=== PATIENT | male | born 1955 | race Caucasian/White ===

== ENCOUNTER 2019-06-20 05:46 | Inpatient (IN) | payer BC ==
[~2019-06-20] VITALS: Ht 162.6 cm; Wt 98.4 kg
[2019-06-20] MEDS ORDERED: ONDANSETRON HCL 4MG/2ML INJ IV ONE (09:45)
[2019-06-20] MEDS ORDERED: ASPIRIN 81MG TABLET PO ONE (09:45)
[2019-06-20] MEDS ORDERED: MORPHINE SULFATE 4 MG/ML CPJ (NOT FOR IM USE) IV ONE (09:45)
[2019-06-20] MEDS ORDERED: SODIUM CHLORIDE 0.9% 1,000 ML IV ONE (09:45)
[2019-06-20 10:20] LABS: HEMATOCRIT. 32.7 % (42.0-52.0); HEMOGLOBIN. 11.3 g/dL (14.0-18.0); MEAN CORPUSCULAR HEMOGLOBIN 29.8 pg (28.0-32.0); MEAN CORPUSCULAR VOLUME 86.4 fL (80.0-94.0); MEAN PLATELET VOLUME 8.7 fl (7.4-10.4); PLATELET 235 x1000/uL (130-400); RED BLOOD CELL COUNT 3.79 mill/uL (4.7-6.1); RED CELL DISTRIBUTION WIDTH 14.1 % (11.6-14.6)
[2019-06-20 10:21] LABS: CHLORIDE 89 mEq/L (98-107)
[2019-06-20 10:57] LABS: PLATELET ESTIMATE NORMAL
[2019-06-20] MEDS ORDERED: INSULIN REGULAR (HUMULIN R) 300UNITS/3ML SUBCUT ONE (11:15)
[2019-06-20 12:00] VITALS: BP 136/74
[2019-06-20 13:04] LABS: CLARITY URINE CLOUDY (CLEAR); COLOR URINE YELLOW (YELLOW); KETONES URINE NEGATIVE (NEGATIVE); LEUKOCYTE ESTERASE URINE 1+ (NEGATIVE); NITRITE URINE NEGATIVE (NEGATIVE); OCCULT BLOOD URINE 1+ (NEGATIVE); PROTEIN URINE 2+ (NEGATIVE); SPECIFIC GRAVITY URINE 1.031 (1.005-1.030)
[2019-06-20] MEDS ORDERED: IOHEXOL-350 100 ML BOTTLE ONE (13:50)
[2019-06-20 13:52] LABS: *AMPHETAMINES SCREEN URINE NEGATIVE (NEGATIVE)
[2019-06-20 13:54] LABS: *BARBITURATES SCREEN URINE NEGATIVE (NEGATIVE); *BENZODIAZEPINES SCREEN URINE NEGATIVE (NEGATIVE); *COCAINE SCREEN URINE NEGATIVE (NEGATIVE); CANNABINOID URINE SCREEN NEGATIVE (NEGATIVE); METHADONE URINE SCREEN NEGATIVE (NEGATIVE); PHENCYCLIDINE URINE SCREEN NEGATIVE (NEGATIVE)
[2019-06-20 14:10] LABS: OPIATES URINE SCREEN PRESUMTIVE POSITIVE (NEGATIVE)
[2019-06-20] MEDS ORDERED: DEXTROSE 50% WATER 50ML SYRINGE IV PRN (14:45)
[2019-06-20] MEDS ORDERED: CLONIDINE 0.1MG TABLET PO PRN (14:45)
[2019-06-20] MEDS ORDERED: ZOLPIDEM TARTRATE 5MG TABLET PO PRN (14:45)
[2019-06-20] MEDS ORDERED: MAGNESIUM/ALUMINUM HYDROXIDE/SIMETHICONE 30ML UDC PO PRN (14:45)
[2019-06-20] MEDS ORDERED: GUAIFENESIN 200MG/10ML SUGAR FREE UDC PO PRN (14:45)
[2019-06-20] MEDS ORDERED: ONDANSETRON HCL 4MG/2ML INJ IV PRN (14:45)
[2019-06-20] MEDS ORDERED: IPRATROPIUM/ALBUTEROL 0.5-3(2.5)MG/3ML NEB NEB PRN (14:45)
[2019-06-20] MEDS ORDERED: ENOXAPARIN 40MG/0.4ML SYR SUBCUT SCH (15:45)
[2019-06-20] MEDS ORDERED: LEVOFLOXACIN 500MG PREMIX 100 ML IV NR (15:45)
[2019-06-20] MEDS: SODIUM CHLORIDE 0.9% 1,000 ML IV SCH ×2 (16:03→23:39)
[2019-06-20 16:04] LABS: T4 FREE 1.7 ng/dL (0.76-1.46)
[2019-06-20] MEDS: KETOROLAC 15MG/ML VIAL IV PRN ×2 (16:04→23:58)
[2019-06-20 16:52] LABS: FOLIC ACID (FOLATE) SERUM 6.9 ng/mL (>5.38)
[2019-06-20] MEDS: BLOOD SUGAR DIAGNOSTIC STRIP TEST SCH ×2 (17:47→21:03)
[2019-06-20] MEDS: INSULIN LISPRO 100 UNITS/ML SUBCUT SCH ×2 (18:16→18:20)
[2019-06-20] MEDS: DILTIAZEM HCL 60MG TABLET PO SCH ×2 (18:16→23:10)
[2019-06-20 20:40] VITALS: BP 107/70
[2019-06-20] MEDS ORDERED: INSULIN GLARGINE UD 100 UNITS/ML SYR SUBCUT SCH (22:00)
[2019-06-20] MEDS ORDERED: CEFTRIAXONE 1 G PREMIX 50 ML IV SCH (23:00)
[2019-06-20] MEDS: NITROGLYCERIN 0.4MG TABLET SL SL PRN (23:08)
[2019-06-20] MEDS: ASCORBIC ACID 500 MG TABLET PO SCH (23:11)
[2019-06-20] MEDS: INSULIN GLARGINE UD 100 UNITS/ML SYR SUBCUT SCH (23:14)
[2019-06-20] MEDS: ENOXAPARIN 30MG/0.3ML SYR SUBCUT SCH (23:16)
[2019-06-20 23:47] LABS: CREATINE KINASE 58 IU/L (39-308)
[2019-06-20 23:49] LABS: CREATINE KINASE MB FRACTION < 1.0 ng/mL (0.5-3.6)
[2019-06-21] VITALS (81 sets, daily range): BP systolic 69–144; BP diastolic 38–92
[2019-06-21] MEDS ORDERED: NOREPINEPHRINE 32 MG in DEXT 5% WATER 468 ML IV PRN (02:30)
[2019-06-21 03:22] LABS: CREATINE KINASE 62 IU/L (39-308); CREATINE KINASE MB FRACTION < 1.0 ng/mL (0.5-3.6)
[2019-06-21] MEDS: DILTIAZEM HCL 60MG TABLET PO SCH ×3 (06:00→18:00)
[2019-06-21 06:09] LABS: CREATINE KINASE 65 IU/L (39-308)
[2019-06-21 06:10] LABS: CREATINE KINASE MB FRACTION < 1.0 ng/mL (0.5-3.6)
[2019-06-21] MEDS: BLOOD SUGAR DIAGNOSTIC STRIP TEST SCH ×4 (07:50→21:39)
[2019-06-21 08:35] LABS: HEMATOCRIT 29.4 % (42.0-52.0); HEMOGLOBIN 10.1 g/dL (14.0-18.0); MEAN CORPUSCULAR HEMOGLOBIN 29.6 pg (28.0-32.0); MEAN CORPUSCULAR VOLUME 86.2 fL (80.0-94.0); PLATELET 183 x1000/uL (130-400); RED BLOOD CELL COUNT 3.41 mill/uL (4.7-6.1); RED CELL DISTRIBUTION WIDTH 14.6 % (11.6-14.6)
[2019-06-21 08:38] LABS: CHLORIDE 98 mEq/L (98-107)
[2019-06-21] MEDS ORDERED: CEFTRIAXONE 1 G PREMIX 50 ML IV SCH (09:00)
[2019-06-21] MEDS: ZINC SULFATE 220 MG ( 50 ) CAPSULE PO SCH (09:22)
[2019-06-21] MEDS: DOCUSATE SODIUM 100MG CAPSULE PO PRN (09:22)
[2019-06-21] MEDS: FAMOTIDINE 20MG TABLET PO SCH ×2 (09:22→21:40)
[2019-06-21] MEDS: ASCORBIC ACID 500 MG TABLET PO SCH ×2 (09:22→21:40)
[2019-06-21] MEDS: ASPIRIN 325MG EC TABLET PO SCH (09:22)
[2019-06-21] MEDS: ENOXAPARIN 30MG/0.3ML SYR SUBCUT SCH ×2 (09:24→21:39)
[2019-06-21] MEDS: KETOROLAC 15MG/ML VIAL IV PRN ×2 (09:26→15:53)
[2019-06-21] MEDS: INSULIN LISPRO 100 UNITS/ML SUBCUT SCH ×7 (10:42→21:38)
[2019-06-21] MEDS ORDERED: VANCOMYCIN 750 MG PREMIX 150 ML IV SCH (12:00)
[2019-06-21] MEDS: MEROPENEM 1,000 MG in SODIUM CHLORIDE 0.9% 100 ML IV SCH ×2 (13:09→18:34)
[2019-06-21] MEDS ORDERED: LEVOFLOXACIN 500MG PREMIX 100 ML IV SCH ×2 (14:45→18:00)
[2019-06-21] MEDS: VANCOMYCIN 1250MG in DEXTROSE 5% WATER 250ML IV SCH (16:40)
[2019-06-21] MEDS: SODIUM CHLORIDE 0.9% 1,000 ML IV SCH ×2 (16:46→19:45)
[2019-06-21] MEDS: INSULIN GLARGINE UD 100 UNITS/ML SYR SUBCUT SCH (21:38)
[2019-06-22] VITALS (35 sets, daily range): BP systolic 92–163; BP diastolic 44–87
[2019-06-22] MEDS: DILTIAZEM HCL 60MG TABLET PO SCH ×2 (00:11→05:48)
[2019-06-22] MEDS: KETOROLAC 15MG/ML VIAL IV PRN ×2 (02:35→09:01)
[2019-06-22] MEDS: MEROPENEM 1,000 MG in SODIUM CHLORIDE 0.9% 100 ML IV SCH ×3 (02:35→18:52)
[2019-06-22] MEDS: SODIUM CHLORIDE 0.9% 1,000 ML IV SCH ×2 (05:48→18:53)
[2019-06-22 06:11] LABS: HEMOGLOBIN. 10.4 g/dL (14.0-18.0); MEAN CORPUSCULAR HEMOGLOBIN 29.8 pg (28.0-32.0); MEAN CORPUSCULAR VOLUME 85.9 fL (80.0-94.0); PLATELET 165 x1000/uL (130-400); RED CELL DISTRIBUTION WIDTH 14.7 % (11.6-14.6)
[2019-06-22 06:33] LABS: CHLORIDE 102 mEq/L (98-107)
[2019-06-22] MEDS: BLOOD SUGAR DIAGNOSTIC STRIP TEST SCH ×4 (07:50→21:24)
[2019-06-22 08:38] LABS: PLATELET ESTIMATE NORMAL
[2019-06-22] MEDS: ASCORBIC ACID 500 MG TABLET PO SCH ×2 (09:01→21:23)
[2019-06-22] MEDS: FAMOTIDINE 20MG TABLET PO SCH ×2 (09:01→21:23)
[2019-06-22] MEDS: ASPIRIN 325MG EC TABLET PO SCH (09:01)
[2019-06-22] MEDS: ZINC SULFATE 220 MG ( 50 ) CAPSULE PO SCH (09:01)
[2019-06-22] MEDS: ENOXAPARIN 30MG/0.3ML SYR SUBCUT SCH ×2 (09:02→21:23)
[2019-06-22] MEDS: INSULIN LISPRO 100 UNITS/ML SUBCUT SCH ×7 (09:04→21:24)
[2019-06-22] MEDS ORDERED: POTASSIUM CHLORIDE 20MEQ/PACKET PO NR (10:15)
[2019-06-22] MEDS: VANCOMYCIN 1250MG in DEXTROSE 5% WATER 250ML IV SCH (10:42)
[2019-06-22] MEDS: LISINOPRIL 5MG TABLET PO SCH (12:22)
[2019-06-22] MEDS: MORPHINE SULFATE 4 MG/ML CPJ (NOT FOR IM USE) IV PRN (14:09)
[2019-06-22] MEDS: METOPROLOL TARTRATE 50MG TABLET PO SCH (21:23)
[2019-06-22] MEDS: INSULIN GLARGINE UD 100 UNITS/ML SYR SUBCUT SCH (21:26)
[2019-06-23] VITALS (40 sets, daily range): BP systolic 104–146; BP diastolic 40–85
[2019-06-23] MEDS: MEROPENEM 1,000 MG in SODIUM CHLORIDE 0.9% 100 ML IV SCH ×2 (02:13→10:19)
[2019-06-23] MEDS: VANCOMYCIN 1250MG in DEXTROSE 5% WATER 250ML IV SCH ×2 (02:59→21:06)
[2019-06-23] MEDS: SODIUM CHLORIDE 0.9% 1,000 ML IV SCH ×3 (02:59→21:46)
[2019-06-23] MEDS: MORPHINE SULFATE 4 MG/ML CPJ (NOT FOR IM USE) IV PRN ×2 (04:38→20:16)
[2019-06-23 05:41] LABS: CHLORIDE 102 mEq/L (98-107)
[2019-06-23 05:46] LABS: HEMATOCRIT. 30.5 % (42.0-52.0); HEMOGLOBIN. 10.6 g/dL (14.0-18.0); MEAN CORPUSCULAR HEMOGLOBIN 29.9 pg (28.0-32.0); MEAN CORPUSCULAR VOLUME 85.8 fL (80.0-94.0); MEAN PLATELET VOLUME 8.8 fl (7.4-10.4); PLATELET 193 x1000/uL (130-400); RED BLOOD CELL COUNT 3.55 mill/uL (4.7-6.1); RED CELL DISTRIBUTION WIDTH 14.8 % (11.6-14.6)
[2019-06-23 07:08] LABS: PLATELET ESTIMATE NORMAL
[2019-06-23] MEDS: INSULIN LISPRO 100 UNITS/ML SUBCUT SCH ×7 (08:20→21:08)
[2019-06-23] MEDS: BLOOD SUGAR DIAGNOSTIC STRIP TEST SCH ×4 (09:00→20:39)
[2019-06-23] MEDS: METOPROLOL TARTRATE 50MG TABLET PO SCH ×3 (09:00→21:44)
[2019-06-23] MEDS: ENOXAPARIN 30MG/0.3ML SYR SUBCUT SCH ×2 (10:06→21:06)
[2019-06-23] MEDS: ZINC SULFATE 220 MG ( 50 ) CAPSULE PO SCH (10:07)
[2019-06-23] MEDS: FAMOTIDINE 20MG TABLET PO SCH ×2 (10:07→21:06)
[2019-06-23] MEDS: ASCORBIC ACID 500 MG TABLET PO SCH ×2 (10:09→21:06)
[2019-06-23] MEDS: ASPIRIN 325MG EC TABLET PO SCH (10:12)
[2019-06-23] MEDS: LISINOPRIL 5MG TABLET PO SCH (18:42)
[2019-06-23] MEDS: INSULIN GLARGINE UD 100 UNITS/ML SYR SUBCUT SCH (21:09)
[2019-06-24] VITALS (30 sets, daily range): BP systolic 92–152; BP diastolic 55–110
[2019-06-24] MEDS: MORPHINE SULFATE 4 MG/ML CPJ (NOT FOR IM USE) IV PRN (01:23)
[2019-06-24 04:26] LABS: CHLORIDE 106 mEq/L (98-107)
[2019-06-24] MEDS: KETOROLAC 15MG/ML VIAL IV PRN ×2 (05:44→15:05)
[2019-06-24] MEDS: INSULIN LISPRO 100 UNITS/ML SUBCUT SCH ×7 (07:41→21:00)
[2019-06-24] MEDS: BLOOD SUGAR DIAGNOSTIC STRIP TEST SCH ×4 (07:41→21:31)
[2019-06-24] MEDS ORDERED: POTASSIUM CHLORIDE 20MEQ/PACKET PO NR (08:45)
[2019-06-24] MEDS: LISINOPRIL 5MG TABLET PO SCH (09:10)
[2019-06-24] MEDS: METOPROLOL TARTRATE 50MG TABLET PO SCH ×2 (09:10→21:31)
[2019-06-24] MEDS: ASPIRIN 325MG EC TABLET PO SCH (09:10)
[2019-06-24] MEDS: FAMOTIDINE 20MG TABLET PO SCH ×2 (09:10→21:30)
[2019-06-24] MEDS: ASCORBIC ACID 500 MG TABLET PO SCH ×2 (09:10→21:30)
[2019-06-24] MEDS: ENOXAPARIN 30MG/0.3ML SYR SUBCUT SCH ×2 (09:11→21:31)
[2019-06-24] MEDS: ZINC SULFATE 220 MG ( 50 ) CAPSULE PO SCH (09:11)
[2019-06-24] MEDS ORDERED: KCL 20MEQ/100ML PREMIX 100 ML IV NR (09:30)
[2019-06-24] MEDS: SODIUM CHLORIDE 0.9% 1,000 ML IV SCH ×2 (09:50→20:18)
[2019-06-24] MEDS: CEFAZOLIN 2,000 MG in DEXT 5% WATER 100 ML IV SCH ×2 (14:59→21:32)
[2019-06-24] MEDS: INSULIN GLARGINE UD 100 UNITS/ML SYR SUBCUT SCH (21:34)
[2019-06-25] VITALS (26 sets, daily range): BP systolic 92–170; BP diastolic 43–95
[2019-06-25] MEDS: KETOROLAC 15MG/ML VIAL IV PRN ×2 (00:13→07:56)
[2019-06-25] MEDS: MORPHINE SULFATE 4 MG/ML CPJ (NOT FOR IM USE) IV PRN ×2 (00:31→05:50)
[2019-06-25] MEDS: SODIUM CHLORIDE 0.9% 1,000 ML IV SCH ×2 (05:27→14:18)
[2019-06-25] MEDS: CEFAZOLIN 2,000 MG in DEXT 5% WATER 100 ML IV SCH ×3 (05:27→21:08)
[2019-06-25 07:34] LABS: CHLORIDE 104 mEq/L (98-107)
[2019-06-25 07:49] LABS: PHOSPHORUS 1.9 mg/dL (2.5-4.9)
[2019-06-25] MEDS: BLOOD SUGAR DIAGNOSTIC STRIP TEST SCH ×4 (07:55→21:05)
[2019-06-25] MEDS: DOCUSATE SODIUM 100MG CAPSULE PO PRN (08:40)
[2019-06-25] MEDS: ASPIRIN 325MG EC TABLET PO SCH (08:40)
[2019-06-25] MEDS: ZINC SULFATE 220 MG ( 50 ) CAPSULE PO SCH (08:41)
[2019-06-25] MEDS: METOPROLOL TARTRATE 50MG TABLET PO SCH ×2 (08:41→20:48)
[2019-06-25] MEDS: LISINOPRIL 5MG TABLET PO SCH (08:41)
[2019-06-25] MEDS: FAMOTIDINE 20MG TABLET PO SCH ×2 (08:41→20:47)
[2019-06-25] MEDS: ASCORBIC ACID 500 MG TABLET PO SCH ×2 (08:41→20:48)
[2019-06-25] MEDS: ENOXAPARIN 30MG/0.3ML SYR SUBCUT SCH ×2 (08:42→20:47)
[2019-06-25] MEDS: INSULIN LISPRO 100 UNITS/ML SUBCUT SCH ×7 (08:43→21:00)
[2019-06-25 09:33] LABS: HEMATOCRIT. 30.4 % (42.0-52.0); HEMOGLOBIN. 10.3 g/dL (14.0-18.0); MEAN CORPUSCULAR HEMOGLOBIN 28.9 pg (28.0-32.0); MEAN CORPUSCULAR VOLUME 85.3 fL (80.0-94.0); MEAN PLATELET VOLUME 8.2 fl (7.4-10.4); PLATELET 297 x1000/uL (130-400); RED BLOOD CELL COUNT 3.56 mill/uL (4.7-6.1); RED CELL DISTRIBUTION WIDTH 14.6 % (11.6-14.6)
[2019-06-25 13:49] LABS: PLATELET ESTIMATE NORMAL
[2019-06-25] MEDS: TRAMADOL 50MG TABLET PO PRN ×2 (14:17→20:52)
[2019-06-25] MEDS: INSULIN GLARGINE UD 100 UNITS/ML SYR SUBCUT SCH (21:29)
[2019-06-26] VITALS (25 sets, daily range): BP systolic 104–165; BP diastolic 52–84
[2019-06-26] MEDS: SODIUM CHLORIDE 0.9% 1,000 ML IV SCH ×3 (01:28→20:35)
[2019-06-26] MEDS: TRAMADOL 50MG TABLET PO PRN ×3 (03:45→20:50)
[2019-06-26 05:01] LABS: CHLORIDE 103 mEq/L (98-107)
[2019-06-26 05:02] LABS: HEMATOCRIT. 31.5 % (42.0-52.0); HEMOGLOBIN. 10.6 g/dL (14.0-18.0); MEAN CORPUSCULAR HEMOGLOBIN 29.3 pg (28.0-32.0); MEAN CORPUSCULAR VOLUME 86.9 fL (80.0-94.0); MEAN PLATELET VOLUME 8.3 fl (7.4-10.4); PLATELET 357 x1000/uL (130-400); RED BLOOD CELL COUNT 3.62 mill/uL (4.7-6.1); RED CELL DISTRIBUTION WIDTH 15.2 % (11.6-14.6)
[2019-06-26] MEDS: CEFAZOLIN 2,000 MG in DEXT 5% WATER 100 ML IV SCH ×3 (05:13→21:00)
[2019-06-26] MEDS: INSULIN LISPRO 100 UNITS/ML SUBCUT SCH ×7 (08:20→20:59)
[2019-06-26] MEDS: BLOOD SUGAR DIAGNOSTIC STRIP TEST SCH ×4 (08:30→20:50)
[2019-06-26] MEDS: ASPIRIN 325MG EC TABLET PO SCH (08:50)
[2019-06-26] MEDS: ZINC SULFATE 220 MG ( 50 ) CAPSULE PO SCH (08:51)
[2019-06-26] MEDS: METOPROLOL TARTRATE 50MG TABLET PO SCH ×2 (08:51→20:51)
[2019-06-26] MEDS: ASCORBIC ACID 500 MG TABLET PO SCH ×2 (08:52→20:49)
[2019-06-26] MEDS: LISINOPRIL 5MG TABLET PO SCH (08:52)
[2019-06-26] MEDS: FAMOTIDINE 20MG TABLET PO SCH ×2 (08:52→20:49)
[2019-06-26] MEDS: ENOXAPARIN 30MG/0.3ML SYR SUBCUT SCH ×2 (08:53→20:50)
[2019-06-26 21:22] LABS: PLATELET ESTIMATE NORMAL
[2019-06-26] MEDS: INSULIN GLARGINE UD 100 UNITS/ML SYR SUBCUT SCH (22:33)
[2019-06-27] VITALS (16 sets, daily range): BP systolic 96–164; BP diastolic 51–79
[2019-06-27] MEDS: CEFAZOLIN 2,000 MG in DEXT 5% WATER 100 ML IV SCH ×2 (05:04→14:51)
[2019-06-27] MEDS: SODIUM CHLORIDE 0.9% 1,000 ML IV SCH ×2 (05:59→17:24)
[2019-06-27] MEDS: TRAMADOL 50MG TABLET PO PRN ×2 (06:07→13:32)
[2019-06-27 06:38] LABS: HEMATOCRIT. 29.8 % (42.0-52.0); MEAN CORPUSCULAR HEMOGLOBIN 28.9 pg (28.0-32.0); MEAN CORPUSCULAR VOLUME 86.4 fL (80.0-94.0); MEAN PLATELET VOLUME 7.8 fl (7.4-10.4); PLATELET 450 x1000/uL (130-400); RED BLOOD CELL COUNT 3.45 mill/uL (4.7-6.1); RED CELL DISTRIBUTION WIDTH 15.2 % (11.6-14.6)
[2019-06-27] MEDS: INSULIN LISPRO 100 UNITS/ML SUBCUT SCH ×7 (07:50→21:00)
[2019-06-27] MEDS: BLOOD SUGAR DIAGNOSTIC STRIP TEST SCH ×4 (07:50→21:19)
[2019-06-27 08:29] LABS: CHLORIDE 105 mEq/L (98-107)
[2019-06-27 08:32] LABS: PLATELET ESTIMATE INCREASED
[2019-06-27] MEDS: ASPIRIN 325MG EC TABLET PO SCH (08:33)
[2019-06-27] MEDS: METOPROLOL TARTRATE 50MG TABLET PO SCH ×2 (08:33→21:14)
[2019-06-27] MEDS: ASCORBIC ACID 500 MG TABLET PO SCH ×2 (08:33→21:14)
[2019-06-27] MEDS: LISINOPRIL 5MG TABLET PO SCH (08:33)
[2019-06-27] MEDS: ZINC SULFATE 220 MG ( 50 ) CAPSULE PO SCH (08:33)
[2019-06-27] MEDS: ENOXAPARIN 30MG/0.3ML SYR SUBCUT SCH ×2 (08:34→21:14)
[2019-06-27] MEDS: FAMOTIDINE 20MG TABLET PO SCH ×2 (08:34→21:14)
[2019-06-27] MEDS: NITROGLYCERIN 0.4MG TABLET SL SL PRN (18:28)
[2019-06-27] MEDS: INSULIN GLARGINE UD 100 UNITS/ML SYR SUBCUT SCH (21:19)
[2019-06-28] VITALS: BP 128/71
[2019-06-28] MEDS: CEFAZOLIN 2,000 MG in DEXT 5% WATER 100 ML IV SCH ×4 (00:06→21:58)
[2019-06-28] MEDS: TRAMADOL 50MG TABLET PO PRN ×3 (00:22→22:00)
[2019-06-28 04:00] VITALS: BP 128/71
[2019-06-28] MEDS: SODIUM CHLORIDE 0.9% 1,000 ML IV SCH ×3 (04:49→21:59)
[2019-06-28] MEDS: BLOOD SUGAR DIAGNOSTIC STRIP TEST SCH ×4 (06:25→21:59)
[2019-06-28] MEDS: INSULIN LISPRO 100 UNITS/ML SUBCUT SCH ×7 (06:27→21:00)
[2019-06-28 06:49] LABS: CHLORIDE 102 mEq/L (98-107); HEMATOCRIT. 27.4 % (42.0-52.0); HEMOGLOBIN. 9.3 g/dL (14.0-18.0); MEAN CORPUSCULAR HEMOGLOBIN 29.5 pg (28.0-32.0); MEAN CORPUSCULAR VOLUME 86.6 fL (80.0-94.0); MEAN PLATELET VOLUME 7.9 fl (7.4-10.4); PLATELET 479 x1000/uL (130-400); RED BLOOD CELL COUNT 3.16 mill/uL (4.7-6.1); RED CELL DISTRIBUTION WIDTH 15.1 % (11.6-14.6)
[2019-06-28 08:00] VITALS: BP 115/61
[2019-06-28] MEDS: ASPIRIN 325MG EC TABLET PO SCH (09:12)
[2019-06-28] MEDS: ASCORBIC ACID 500 MG TABLET PO SCH ×2 (09:12→21:58)
[2019-06-28] MEDS: METOPROLOL TARTRATE 50MG TABLET PO SCH ×2 (09:12→22:00)
[2019-06-28] MEDS: ENOXAPARIN 30MG/0.3ML SYR SUBCUT SCH ×2 (09:12→21:59)
[2019-06-28] MEDS: LISINOPRIL 5MG TABLET PO SCH (09:12)
[2019-06-28] MEDS: ZINC SULFATE 220 MG ( 50 ) CAPSULE PO SCH (09:13)
[2019-06-28] MEDS: FAMOTIDINE 20MG TABLET PO SCH ×2 (09:13→22:00)
[2019-06-28 11:41] VITALS: BP_SYST 115; BP_SYST 130; BP_DIAS 61; BP_DIAS 69
[2019-06-28 12:00] VITALS: BP 124/62
[2019-06-28 14:10] LABS: PLATELET ESTIMATE INCREASED
[2019-06-28 16:00] VITALS: BP 109/55
[2019-06-28] MEDS: INSULIN GLARGINE UD 100 UNITS/ML SYR SUBCUT SCH (21:57)
[2019-06-29] VITALS: BP 118/63
[2019-06-29] MEDS: NITROGLYCERIN 0.4MG TABLET SL SL PRN (00:20)
[2019-06-29 04:00] VITALS: BP 129/70
[2019-06-29] MEDS: TRAMADOL 50MG TABLET PO PRN ×2 (06:29→08:50)
[2019-06-29] MEDS: CEFAZOLIN 2,000 MG in DEXT 5% WATER 100 ML IV SCH (06:29)
[2019-06-29] MEDS: INSULIN LISPRO 100 UNITS/ML SUBCUT SCH ×5 (06:46→12:13)
[2019-06-29] MEDS: BLOOD SUGAR DIAGNOSTIC STRIP TEST SCH ×2 (06:46→11:45)
[2019-06-29 07:04] LABS: HEMATOCRIT. 26.5 % (42.0-52.0); MEAN CORPUSCULAR HEMOGLOBIN 29.2 pg (28.0-32.0); MEAN PLATELET VOLUME 7.7 fl (7.4-10.4); PLATELET 551 x1000/uL (130-400); RED BLOOD CELL COUNT 3.08 mill/uL (4.7-6.1)
[2019-06-29 07:10] LABS: CHLORIDE 102 mEq/L (98-107)
[2019-06-29 08:00] VITALS: BP 130/69
[2019-06-29] MEDS: ASCORBIC ACID 500 MG TABLET PO SCH (08:36)
[2019-06-29] MEDS: ASPIRIN 325MG EC TABLET PO SCH (08:36)
[2019-06-29] MEDS: METOPROLOL TARTRATE 50MG TABLET PO SCH (08:36)
[2019-06-29] MEDS: LISINOPRIL 5MG TABLET PO SCH (08:36)
[2019-06-29] MEDS: ZINC SULFATE 220 MG ( 50 ) CAPSULE PO SCH (08:36)
[2019-06-29] MEDS: FAMOTIDINE 20MG TABLET PO SCH (08:36)
[2019-06-29] MEDS: ENOXAPARIN 30MG/0.3ML SYR SUBCUT SCH (08:37)
[2019-06-29] MEDS: SODIUM CHLORIDE 0.9% 1,000 ML IV SCH (08:38)
[2019-06-29 11:37] LABS: PLATELET ESTIMATE INCREASED
[2019-06-29 12:00] VITALS: BP 160/75
== END 2019-06-29 12:35 | disposition home health service (06) | DRG 871 ==
LOC: ER 05:46 → EDBEDREQ 12:37 → 7WST 16:19 → ENRESERV 20:31 → CVICU 06-21 04:06 → 6WST 06-27 15:25
PROVIDERS: ADMIT Internal Medicine; ATTEND Internal Medicine
PROC: 05HM33Z Insertion of Infusion Device into Right Internal Jugular Vein, Percutaneous Approach (ICD-10-PCS; principal; 2019-06-21)
PROC: B543ZZA Ultrasonography of Right Jugular Veins, Guidance (ICD-10-PCS; 2019-06-21)
DX: A41.01 Sepsis due to Methicillin susceptible Staphylococcus aureus (principal); N17.0 Acute kidney failure with tubular necrosis; E43 Unspecified severe protein-calorie malnutrition; R65.21 Severe sepsis with septic shock; N39.0 Urinary tract infection, site not specified; E87.1 Hypo-osmolality and hyponatremia; L03.113 Cellulitis of right upper limb; E11.65 Type 2 diabetes mellitus with hyperglycemia; E83.51 Hypocalcemia; D64.9 Anemia, unspecified; E66.9 Obesity, unspecified; M48.02 Spinal stenosis, cervical region; I10 Essential (primary) hypertension; E78.5 Hyperlipidemia, unspecified; E78.00 Pure hypercholesterolemia, unspecified; B95.2 Enterococcus as the cause of diseases classified elsewhere; R74.0 Nonspecific elevation of levels of transaminase and lactic acid dehydrogenase [LDH]; J44.9 Chronic obstructive pulmonary disease, unspecified; Z79.4 Long term (current) use of insulin; Z87.891 Personal history of nicotine dependence; Z68.37 Body mass index [BMI] 37.0-37.9, adult
CPT/HCPCS: 36415; 71045; 71275; 72141; 72146; 72148; 73030; 73221; 76937; 80048; 80053; 80061; 80202; 80305; 81003; 82550; 82553; 82607; 82746; 82962; 83036; 83540; 83550; 83605; 83735; 83880; 84100; 84439; 84443; 84484; 85025; 85027; 85379; 85651; 86140; 87077; 87186; 93005; 93306; 93970; 96365; 97162; 97166; 97530; 99285; C1725; J0690; J0696; J1650; J1815; J1885; J1956; J2185; J2270; J2405; J3370; J3480; J7050; J7060; Q9967

== ENCOUNTER 2022-07-16 15:05 | Inpatient (IN) | payer OTHER ==
[~2022-07-16] VITALS: Ht 167.6 cm; Wt 80.4 kg
[2022-07-16] MEDS ORDERED: MORPHINE SULFATE 4 MG/ML CPJ (NOT FOR IM USE) IV STA (15:48)
[2022-07-16] MEDS ORDERED: ONDANSETRON HCL 4MG/2ML INJ IV STA (15:48)
[2022-07-16] MEDS ORDERED: PIPERACILLIN/TAZ 3.375G PREMIX 50 ML IV ONE (16:00)
[2022-07-16] MEDS ORDERED: SODIUM CHLORIDE 0.9% 1,000 ML IV ONE (16:00)
[2022-07-16] MEDS ORDERED: VANCOMYCIN 1G PREMIX 200 ML IV ONE (16:00)
[2022-07-16 17:59] LABS: BASOPHILS % 0.6 % (0.0-2.0); EOSINOPHILS % 1.4 % (0.0-5.0); HEMATOCRIT. 26.2 % (42.0-52.0); HEMOGLOBIN. 8.8 g/dL (14.0-18.0); LYMPHOCYTES % 11.9 % (20.0-50.0); MEAN CORPUSCULAR HEMOGLOBIN 28.6 pg (28.0-32.0); MEAN CORPUSCULAR VOLUME 84.9 fL (80.0-94.0); MEAN PLATELET VOLUME 6.7 fl (7.4-10.4); MONOCYTES % 8.3 % (2.0-8.0); NEUTROPHILS % 77.8 % (40.0-76.0); PLATELET 583 x1000/uL (130-400); RED BLOOD CELL COUNT 3.08 mill/uL (4.7-6.1); RED CELL DISTRIBUTION WIDTH 13.8 % (11.6-14.6)
[2022-07-16 18:04] LABS: INR 1.3; PROTHROMBIN TIME 13.3 sec (9.6-11.0)
[2022-07-16 18:08] LABS: CHLORIDE 103 mEq/L (98-107)
[2022-07-16] MEDS ORDERED: SODIUM POLYSTYRENE SULFONATE 15 G/60 ML BOT PO ONE (18:45)
[2022-07-16] MEDS ORDERED: SODIUM BICARBONATE 8.4% 1 MEQ/ML 50ML SYR IV ONE (18:45)
[2022-07-16] MEDS ORDERED: ALBUTEROL (0.083%) 2.5MG/3ML NEB HHN ONE (18:45)
[2022-07-16] MEDS ORDERED: MORPHINE SULFATE 4 MG/ML CPJ (NOT FOR IM USE) IV NR (20:45)
[2022-07-16] MEDS: ONDANSETRON HCL 4MG/2ML INJ IV NR ×2 (21:06→21:08)
[2022-07-16] MEDS ORDERED: VANCOMYCIN 1G PREMIX 200 ML IV NR (22:00)
[2022-07-16 22:25] VITALS: BP 147/72
[2022-07-16] MEDS ORDERED: METF-416 PO (22:49)
[2022-07-16] MEDS ORDERED: OMEP20CA14 PO (22:49)
[2022-07-16] MEDS ORDERED: ATOR20TA65 PO (22:49)
[2022-07-16] MEDS ORDERED: CLOP-31 PO (22:49)
[2022-07-16] MEDS ORDERED: FERR325T6 PO (22:49)
[2022-07-16] MEDS ORDERED: BENA-8 PO (22:49)
[2022-07-16 23:26] VITALS: BP 147/72
[2022-07-16] MEDS ORDERED: NALOXONE HCL 0.4MG/ML VIAL IV PRN (23:45)
[2022-07-17] MEDS ORDERED: DEXTROSE 50% WATER 50ML SYRINGE IV PRN
[2022-07-17 00:05] VITALS: BP 104/66
[2022-07-17 04:00] VITALS: BP 99/57
[2022-07-17] MEDS: PIPERACILLIN/TAZOBACTAM 3.375 G in DEXTROSE 5% WATER 50 ML IV SCH ×3 (05:33→21:15)
[2022-07-17] MEDS: HYDROCODONE/ACETAMINOPHEN 10/325MG TABLET PO PRN ×2 (05:41→10:17)
[2022-07-17] MEDS: INSULIN LISPRO 100 UNITS/ML SUBCUT SCH ×4 (05:45→21:00)
[2022-07-17] MEDS: BLOOD SUGAR DIAGNOSTIC STRIP TEST SCH ×4 (05:45→21:08)
[2022-07-17 06:26] LABS: BASOPHILS % 0.8 % (0.0-2.0); EOSINOPHILS % 2.7 % (0.0-5.0); HEMOGLOBIN. 7.9 g/dL (14.0-18.0); LYMPHOCYTES % 19.2 % (20.0-50.0); MEAN CORPUSCULAR HEMOGLOBIN 28.9 pg (28.0-32.0); MEAN CORPUSCULAR VOLUME 84.5 fL (80.0-94.0); NEUTROPHILS % 66.3 % (40.0-76.0); PLATELET 483 x1000/uL (130-400); RED BLOOD CELL COUNT 2.72 mill/uL (4.7-6.1); RED CELL DISTRIBUTION WIDTH 13.6 % (11.6-14.6)
[2022-07-17 07:45] LABS: CHLORIDE 108 mEq/L (98-107)
[2022-07-17 07:50] LABS: HDL CHOLESTEROL 25 mg/dL (40-59); LDL CHOLESTEROL 29 mg/dL (5-100)
[2022-07-17 08:00] VITALS: BP 99/59
[2022-07-17] MEDS: FERROUS SULFATE 325MG TABLET PO SCH (08:08)
[2022-07-17] MEDS: METFORMIN HCL 500MG TABLET PO SCH ×2 (08:10→18:10)
[2022-07-17] MEDS ORDERED: VANCOMYCIN 1.25GM PMX (XELLIA) 250 ML IV SCH (09:00)
[2022-07-17] MEDS ORDERED: OMEPRAZOLE 20MG CAPSULE EXTENDED RELEASE PO SCH (09:00)
[2022-07-17] MEDS: CLOPIDOGREL 75MG TABLET PO SCH (11:28)
[2022-07-17 12:00] VITALS: BP 87/48
[2022-07-17] MEDS ORDERED: SODIUM CHLORIDE 0.9% 500 ML IV ONE (12:15)
[2022-07-17 12:30] VITALS: BP 106/62
[2022-07-17] MEDS: KETOROLAC 15MG/ML VIAL IV PRN (13:36)
[2022-07-17 16:00] VITALS: BP 105/55
[2022-07-17] MEDS: MIDODRINE HCL 5MG TABLET PO SCH (18:49)
[2022-07-17] MEDS: ATORVASTATIN CALCIUM 20MG TABLET PO SCH (21:15)
[2022-07-18] VITALS: BP 114/59
[2022-07-18] MEDS ORDERED: VANCOMYCIN 1G PREMIX 200 ML IV SCH
[2022-07-18 04:00] VITALS: BP 99/55
[2022-07-18] MEDS: BLOOD SUGAR DIAGNOSTIC STRIP TEST SCH ×4 (06:27→21:54)
[2022-07-18] MEDS: PIPERACILLIN/TAZOBACTAM 3.375 G in DEXTROSE 5% WATER 50 ML IV SCH ×3 (06:27→21:49)
[2022-07-18 08:00] VITALS: BP 107/63
[2022-07-18] MEDS: METFORMIN HCL 500MG TABLET PO SCH ×2 (08:10→18:10)
[2022-07-18] MEDS: INSULIN LISPRO 100 UNITS/ML SUBCUT SCH ×4 (08:10→21:54)
[2022-07-18] MEDS: OMEPRAZOLE 20MG CAPSULE EXTENDED RELEASE PO SCH (08:13)
[2022-07-18] MEDS: KETOROLAC 15MG/ML VIAL IV PRN ×2 (08:13→20:50)
[2022-07-18] MEDS: FERROUS SULFATE 325MG TABLET PO SCH (08:13)
[2022-07-18] MEDS: CLOPIDOGREL 75MG TABLET PO SCH (08:14)
[2022-07-18] MEDS: MIDODRINE HCL 5MG TABLET PO SCH ×3 (08:14→18:33)
[2022-07-18 09:08] LABS: CHLORIDE 107 mEq/L (98-107)
[2022-07-18 12:00] VITALS: BP 104/61
[2022-07-18] MEDS: IRON SUCROSE COMPLEX 100 MG/5 ML ML IV SCH (13:38)
[2022-07-18 16:00] VITALS: BP 124/64
[2022-07-18] MEDS ORDERED: IOHEXOL-350 100 ML BOTTLE ONE (16:14)
[2022-07-18 20:00] VITALS: BP 104/53
[2022-07-18] MEDS: ATORVASTATIN CALCIUM 20MG TABLET PO SCH (20:50)
[2022-07-19] VITALS: BP 101/57
[2022-07-19] MEDS: VANCOMYCIN 750MG PREMIX 150 ML IV SCH ×2 (00:52→17:25)
[2022-07-19 04:00] VITALS: BP 98/58
[2022-07-19] MEDS: PIPERACILLIN/TAZOBACTAM 3.375 G in DEXTROSE 5% WATER 50 ML IV SCH ×3 (06:03→21:21)
[2022-07-19] MEDS: BLOOD SUGAR DIAGNOSTIC STRIP TEST SCH ×4 (06:23→21:21)
[2022-07-19] MEDS: OMEPRAZOLE 20MG CAPSULE EXTENDED RELEASE PO SCH (07:13)
[2022-07-19 08:00] VITALS: BP 113/64
[2022-07-19] MEDS: INSULIN LISPRO 100 UNITS/ML SUBCUT SCH ×4 (08:10→21:00)
[2022-07-19] MEDS: METFORMIN HCL 500MG TABLET PO SCH ×2 (08:10→17:26)
[2022-07-19] MEDS: CLOPIDOGREL 75MG TABLET PO SCH (09:35)
[2022-07-19] MEDS: KETOROLAC 15MG/ML VIAL IV PRN ×2 (09:35→21:56)
[2022-07-19] MEDS: MIDODRINE HCL 5MG TABLET PO SCH ×3 (09:36→17:25)
[2022-07-19] MEDS: FERROUS SULFATE 325MG TABLET PO SCH (09:36)
[2022-07-19 12:00] VITALS: BP 93/56
[2022-07-19] MEDS: IRON SUCROSE COMPLEX 100 MG/5 ML ML IV SCH (12:37)
[2022-07-19 16:00] VITALS: BP 106/58
[2022-07-19 20:11] VITALS: BP 112/61
[2022-07-19] MEDS: ATORVASTATIN CALCIUM 20MG TABLET PO SCH (21:21)
[2022-07-20] VITALS: BP 116/63
[2022-07-20 04:00] VITALS: BP 102/52
[2022-07-20] MEDS: INSULIN LISPRO 100 UNITS/ML SUBCUT SCH ×4 (06:27→21:00)
[2022-07-20] MEDS: PIPERACILLIN/TAZOBACTAM 3.375 G in DEXTROSE 5% WATER 50 ML IV SCH ×3 (06:27→20:29)
[2022-07-20] MEDS: BLOOD SUGAR DIAGNOSTIC STRIP TEST SCH ×4 (06:27→21:00)
[2022-07-20 07:21] LABS: BASOPHILS % 0.7 % (0.0-2.0); EOSINOPHILS % 3.7 % (0.0-5.0); HEMATOCRIT. 24.4 % (42.0-52.0); HEMOGLOBIN. 8.3 g/dL (14.0-18.0); LYMPHOCYTES % 14.2 % (20.0-50.0); MEAN CORPUSCULAR HEMOGLOBIN 28.5 pg (28.0-32.0); MONOCYTES % 10.5 % (2.0-8.0); NEUTROPHILS % 70.9 % (40.0-76.0); PLATELET 471 x1000/uL (130-400); RED CELL DISTRIBUTION WIDTH 13.7 % (11.6-14.6)
[2022-07-20 07:26] LABS: CHLORIDE 106 mEq/L (98-107)
[2022-07-20 08:00] VITALS: BP 116/50
[2022-07-20] MEDS: OMEPRAZOLE 20MG CAPSULE EXTENDED RELEASE PO SCH (09:37)
[2022-07-20] MEDS: CLOPIDOGREL 75MG TABLET PO SCH (09:40)
[2022-07-20] MEDS: METFORMIN HCL 500MG TABLET PO SCH ×2 (09:40→17:35)
[2022-07-20] MEDS: FERROUS SULFATE 325MG TABLET PO SCH (09:40)
[2022-07-20] MEDS: MIDODRINE HCL 5MG TABLET PO SCH ×3 (09:41→17:19)
[2022-07-20 12:00] VITALS: BP 122/66
[2022-07-20] MEDS: VANCOMYCIN 750MG PREMIX 150 ML IV SCH (12:53)
[2022-07-20] MEDS: IRON SUCROSE COMPLEX 100 MG/5 ML ML IV SCH (12:54)
[2022-07-20 16:00] VITALS: BP 129/70
[2022-07-20 20:00] VITALS: BP 119/66
[2022-07-20] MEDS: ATORVASTATIN CALCIUM 20MG TABLET PO SCH (20:30)
[2022-07-20] MEDS: HYDROCODONE/ACETAMINOPHEN 10/325MG TABLET PO PRN (20:30)
[2022-07-21 01:00] VITALS: BP 100/53
[2022-07-21] MEDS: VANCOMYCIN 750MG PREMIX 150 ML IV SCH (07:35)
[2022-07-21] MEDS: PIPERACILLIN/TAZOBACTAM 3.375 G in DEXTROSE 5% WATER 50 ML IV SCH ×3 (07:35→22:03)
[2022-07-21] MEDS: BLOOD SUGAR DIAGNOSTIC STRIP TEST SCH ×4 (07:53→21:00)
[2022-07-21 08:00] VITALS: BP 121/66
[2022-07-21] MEDS: METFORMIN HCL 500MG TABLET PO SCH ×2 (08:06→17:48)
[2022-07-21] MEDS: INSULIN LISPRO 100 UNITS/ML SUBCUT SCH ×4 (08:07→21:00)
[2022-07-21] MEDS: FERROUS SULFATE 325MG TABLET PO SCH (08:55)
[2022-07-21] MEDS: MIDODRINE HCL 5MG TABLET PO SCH ×3 (08:55→16:18)
[2022-07-21] MEDS: OMEPRAZOLE 20MG CAPSULE EXTENDED RELEASE PO SCH (08:55)
[2022-07-21] MEDS: CLOPIDOGREL 75MG TABLET PO SCH (08:56)
[2022-07-21 12:00] VITALS: BP 107/46
[2022-07-21] MEDS ORDERED: IODIXANOL 320MG/ML 100 ML BOTTLE IV ONE (12:09)
[2022-07-21] MEDS ORDERED: LIDOCAINE HCL 1% 20ML VIAL (Pyxis) INJ ONE (12:09)
[2022-07-21] MEDS ORDERED: HEPARIN 1000 UNITS/ML 10ML ONE (12:22)
[2022-07-21] MEDS ORDERED: MIDAZOLAM HCL 2 MG/2 ML VIAL ONE (12:23)
[2022-07-21] MEDS ORDERED: FENTANYL CITRATE/PF 50MCG/ML 2ML VIAL ONE (12:23)
[2022-07-21 16:00] VITALS: BP 108/61
[2022-07-21] MEDS: HYDROCODONE/ACETAMINOPHEN 10/325MG TABLET PO PRN (16:18)
[2022-07-21 20:00] VITALS: BP 102/62
[2022-07-21] MEDS: ATORVASTATIN CALCIUM 20MG TABLET PO SCH (21:59)
[2022-07-22] VITALS: BP 97/60
[2022-07-22 04:00] VITALS: BP 100/43
[2022-07-22] MEDS: INSULIN LISPRO 100 UNITS/ML SUBCUT SCH ×4 (07:32→21:00)
[2022-07-22] MEDS: BLOOD SUGAR DIAGNOSTIC STRIP TEST SCH ×4 (07:33→21:00)
[2022-07-22] MEDS: METFORMIN HCL 500MG TABLET PO SCH ×2 (07:49→17:46)
[2022-07-22] MEDS: OMEPRAZOLE 20MG CAPSULE EXTENDED RELEASE PO SCH (07:49)
[2022-07-22 08:00] VITALS: BP 99/55
[2022-07-22] MEDS: FERROUS SULFATE 325MG TABLET PO SCH (08:48)
[2022-07-22] MEDS: MIDODRINE HCL 5MG TABLET PO SCH ×3 (08:49→17:46)
[2022-07-22] MEDS ORDERED: CLOPIDOGREL 75MG TABLET PO SCH (09:00)
[2022-07-22 12:00] VITALS: BP 107/61
[2022-07-22 16:00] VITALS: BP 115/67
[2022-07-22 16:03] LABS: BASOPHILS % 0.5 % (0.0-2.0); EOSINOPHILS % 0.9 % (0.0-5.0); HEMATOCRIT. 22.8 % (42.0-52.0); HEMOGLOBIN. 7.7 g/dL (14.0-18.0); LYMPHOCYTES % 12.1 % (20.0-50.0); MEAN CORPUSCULAR HEMOGLOBIN 28.3 pg (28.0-32.0); MEAN CORPUSCULAR VOLUME 84.4 fL (80.0-94.0); MEAN PLATELET VOLUME 6.6 fl (7.4-10.4); MONOCYTES % 14.4 % (2.0-8.0); NEUTROPHILS % 72.1 % (40.0-76.0); PLATELET 391 x1000/uL (130-400); RED BLOOD CELL COUNT 2.71 mill/uL (4.7-6.1); RED CELL DISTRIBUTION WIDTH 13.8 % (11.6-14.6)
[2022-07-22 16:13] LABS: CHLORIDE 104 mEq/L (98-107)
[2022-07-22 16:18] LABS: TOTAL IRON BINDING CAPACITY 221 ug/dL (250-450)
[2022-07-22] MEDS: CYANOCOBALAMIN 1000MCG/ML VIAL SUBCUT SCH (17:46)
[2022-07-22] MEDS: IRON SUCROSE COMPLEX 100 MG/5 ML ML IV SCH (17:47)
[2022-07-22 19:19] LABS: HEMATOCRIT 23.3 % (42.0-52.0); HEMOGLOBIN 7.9 g/dL (14.0-18.0)
[2022-07-22 20:00] VITALS: BP 110/63
[2022-07-22] MEDS: PANTOPRAZOLE SODIUM 40 MG/VIAL IV SCH (21:28)
[2022-07-22] MEDS: ATORVASTATIN CALCIUM 20MG TABLET PO SCH (21:32)
[2022-07-22] MEDS: ACETAMINOPHEN 650MG/20.3ML UDC PO PRN (21:35)
[2022-07-22 23:09] LABS: HEMATOCRIT. 22.1 % (42.0-52.0); HEMOGLOBIN. 7.5 g/dL (14.0-18.0); MEAN CORPUSCULAR HEMOGLOBIN 28.7 pg (28.0-32.0); MEAN CORPUSCULAR VOLUME 84.6 fL (80.0-94.0); MEAN PLATELET VOLUME 6.6 fl (7.4-10.4); PLATELET 379 x1000/uL (130-400); RED BLOOD CELL COUNT 2.61 mill/uL (4.7-6.1); RED CELL DISTRIBUTION WIDTH 14.1 % (11.6-14.6)
[2022-07-22] MEDS: PIPERACILLIN/TAZOBACTAM 3.375 G in DEXTROSE 5% WATER 50 ML IV SCH (23:32)
[2022-07-22] MEDS: DEXT 5%/0.9% NACL 1,000 ML IV SCH (23:35)
[2022-07-22 23:58] LABS: PLATELET ESTIMATE NORMAL
[2022-07-23] VITALS: BP 94/52
[2022-07-23 04:00] VITALS: BP 98/50
[2022-07-23 05:30] LABS: HEMATOCRIT. 22.9 % (42.0-52.0); HEMOGLOBIN. 7.6 g/dL (14.0-18.0); MEAN CORPUSCULAR HEMOGLOBIN 28.1 pg (28.0-32.0); MEAN CORPUSCULAR VOLUME 84.6 fL (80.0-94.0); MEAN PLATELET VOLUME 6.6 fl (7.4-10.4); PLATELET 357 x1000/uL (130-400); RED BLOOD CELL COUNT 2.71 mill/uL (4.7-6.1)
[2022-07-23 05:40] LABS: INR 1.2; PROTHROMBIN TIME 12.4 sec (9.6-11.0)
[2022-07-23 06:05] LABS: CHLORIDE 105 mEq/L (98-107)
[2022-07-23] MEDS: PIPERACILLIN/TAZOBACTAM 3.375 G in DEXTROSE 5% WATER 50 ML IV SCH ×3 (06:09→21:48)
[2022-07-23] MEDS: BLOOD SUGAR DIAGNOSTIC STRIP TEST SCH ×4 (06:10→21:48)
[2022-07-23] MEDS: INSULIN LISPRO 100 UNITS/ML SUBCUT SCH ×4 (06:10→21:00)
[2022-07-23] MEDS: METFORMIN HCL 500MG TABLET PO SCH ×2 (06:13→16:42)
[2022-07-23 06:39] LABS: PLATELET ESTIMATE NORMAL
[2022-07-23 08:00] VITALS: BP 114/67
[2022-07-23] MEDS: FERROUS SULFATE 325MG TABLET PO SCH (08:29)
[2022-07-23] MEDS: MIDODRINE HCL 5MG TABLET PO SCH ×3 (08:29→16:42)
[2022-07-23] MEDS: PANTOPRAZOLE SODIUM 40 MG/VIAL IV SCH ×2 (08:30→21:48)
[2022-07-23] MEDS: CYANOCOBALAMIN 1000MCG/ML VIAL SUBCUT SCH (08:30)
[2022-07-23 12:00] VITALS: BP 115/53
[2022-07-23] MEDS: DEXT 5%/0.9% NACL 1,000 ML IV SCH (13:23)
[2022-07-23 13:47] LABS: HEMATOCRIT 23.9 % (42.0-52.0); HEMOGLOBIN 8.2 g/dL (14.0-18.0)
[2022-07-23] MEDS ORDERED: KETOROLAC 30MG/ML VIAL IV PRN (14:30)
[2022-07-23] MEDS ORDERED: NALOXONE HCL 0.4MG/ML VIAL IV PRN (15:00)
[2022-07-23 16:00] VITALS: BP 110/64
[2022-07-23] MEDS: TRAMADOL 50MG TABLET PO PRN (16:42)
[2022-07-23] MEDS: IRON SUCROSE COMPLEX 100 MG/5 ML ML IV SCH (16:43)
[2022-07-23 20:00] VITALS: BP 103/57
[2022-07-23 20:45] LABS: HEMATOCRIT 22.6 % (42.0-52.0); HEMOGLOBIN 7.6 g/dL (14.0-18.0)
[2022-07-23] MEDS: ATORVASTATIN CALCIUM 20MG TABLET PO SCH (21:48)
[2022-07-24] VITALS: BP 105/62
[2022-07-24 01:03] LABS: HEMATOCRIT 22.6 % (42.0-52.0); HEMOGLOBIN 7.6 g/dL (14.0-18.0)
[2022-07-24] MEDS: DEXT 5%/0.9% NACL 1,000 ML IV SCH ×2 (02:41→17:56)
[2022-07-24 04:00] VITALS: BP 110/70
[2022-07-24] MEDS: PIPERACILLIN/TAZOBACTAM 3.375 G in DEXTROSE 5% WATER 50 ML IV SCH ×3 (05:07→21:31)
[2022-07-24] MEDS: BLOOD SUGAR DIAGNOSTIC STRIP TEST SCH ×4 (05:35→21:18)
[2022-07-24] MEDS: INSULIN LISPRO 100 UNITS/ML SUBCUT SCH ×4 (05:35→21:00)
[2022-07-24 06:32] LABS: BASOPHILS % 0.4 % (0.0-2.0); EOSINOPHILS % 3.6 % (0.0-5.0); HEMATOCRIT. 23.4 % (42.0-52.0); HEMOGLOBIN. 7.8 g/dL (14.0-18.0); LYMPHOCYTES % 16.7 % (20.0-50.0); MEAN CORPUSCULAR HEMOGLOBIN 28.3 pg (28.0-32.0); MEAN CORPUSCULAR VOLUME 84.8 fL (80.0-94.0); MEAN PLATELET VOLUME 7.1 fl (7.4-10.4); MONOCYTES % 10.9 % (2.0-8.0); NEUTROPHILS % 68.4 % (40.0-76.0); PLATELET 350 x1000/uL (130-400); RED BLOOD CELL COUNT 2.76 mill/uL (4.7-6.1); RED CELL DISTRIBUTION WIDTH 14.3 % (11.6-14.6)
[2022-07-24 07:30] LABS: CHLORIDE 104 mEq/L (98-107)
[2022-07-24 08:00] VITALS: BP 97/47
[2022-07-24] MEDS: CYANOCOBALAMIN 1000MCG/ML VIAL SUBCUT SCH (08:44)
[2022-07-24] MEDS: FERROUS SULFATE 325MG TABLET PO SCH (08:45)
[2022-07-24] MEDS: MIDODRINE HCL 5MG TABLET PO SCH ×3 (08:45→17:56)
[2022-07-24] MEDS: METFORMIN HCL 500MG TABLET PO SCH ×2 (08:45→17:10)
[2022-07-24] MEDS: PANTOPRAZOLE SODIUM 40 MG/VIAL IV SCH ×2 (08:45→21:21)
[2022-07-24 12:00] VITALS: BP 104/60
[2022-07-24 12:58] LABS: HEMATOCRIT 22.6 % (42.0-52.0); HEMOGLOBIN 7.6 g/dL (14.0-18.0)
[2022-07-24] MEDS: ACETAMINOPHEN 325MG TABLET PO PRN ×2 (13:47→18:03)
[2022-07-24 16:00] VITALS: BP 102/54
[2022-07-24] MEDS: IRON SUCROSE COMPLEX 100 MG/5 ML ML IV SCH (17:55)
[2022-07-24 20:00] VITALS: BP 98/54
[2022-07-24] MEDS: ATORVASTATIN CALCIUM 20MG TABLET PO SCH (21:19)
[2022-07-25] VITALS: BP 98/53
[2022-07-25 04:00] VITALS: BP 100/55
[2022-07-25] MEDS: DEXT 5%/0.9% NACL 1,000 ML IV SCH ×2 (05:21→20:50)
[2022-07-25] MEDS: PIPERACILLIN/TAZOBACTAM 3.375 G in DEXTROSE 5% WATER 50 ML IV SCH ×3 (05:36→21:10)
[2022-07-25] MEDS: ACETAMINOPHEN 325MG TABLET PO PRN ×2 (05:36→17:38)
[2022-07-25] MEDS: BLOOD SUGAR DIAGNOSTIC STRIP TEST SCH ×4 (05:41→20:37)
[2022-07-25] MEDS: INSULIN LISPRO 100 UNITS/ML SUBCUT SCH ×4 (05:42→20:37)
[2022-07-25 05:52] LABS: CHLORIDE 105 mEq/L (98-107)
[2022-07-25 06:32] LABS: BASOPHILS % 0.5 % (0.0-2.0); EOSINOPHILS % 4.8 % (0.0-5.0); HEMATOCRIT. 23.6 % (42.0-52.0); LYMPHOCYTES % 15.6 % (20.0-50.0); MEAN CORPUSCULAR HEMOGLOBIN 28.8 pg (28.0-32.0); MEAN CORPUSCULAR VOLUME 84.6 fL (80.0-94.0); MEAN PLATELET VOLUME 6.9 fl (7.4-10.4); MONOCYTES % 9.9 % (2.0-8.0); NEUTROPHILS % 69.2 % (40.0-76.0); PLATELET 360 x1000/uL (130-400); RED BLOOD CELL COUNT 2.79 mill/uL (4.7-6.1); RED CELL DISTRIBUTION WIDTH 14.2 % (11.6-14.6)
[2022-07-25 08:00] VITALS: BP 144/91
[2022-07-25] MEDS: METFORMIN HCL 500MG TABLET PO SCH ×2 (08:30→16:34)
[2022-07-25] MEDS: CYANOCOBALAMIN 1000MCG/ML VIAL SUBCUT SCH (08:30)
[2022-07-25] MEDS: PANTOPRAZOLE SODIUM 40 MG/VIAL IV SCH ×2 (08:30→20:48)
[2022-07-25] MEDS: MIDODRINE HCL 5MG TABLET PO SCH ×3 (08:31→17:38)
[2022-07-25] MEDS: FERROUS SULFATE 325MG TABLET PO SCH (08:31)
[2022-07-25 12:00] VITALS: BP 110/54
[2022-07-25 16:00] VITALS: BP 112/62
[2022-07-25] MEDS: GUAIFENESIN-DM 200MG-20MG/10ML UDC PO PRN (17:38)
[2022-07-25 20:00] VITALS: BP 111/71
[2022-07-25] MEDS: ATORVASTATIN CALCIUM 20MG TABLET PO SCH (20:48)
[2022-07-26] VITALS: BP 97/52
[2022-07-26] MEDS: GUAIFENESIN-DM 200MG-20MG/10ML UDC PO PRN ×3 (00:38→18:49)
[2022-07-26] MEDS: ACETAMINOPHEN 325MG TABLET PO PRN ×3 (00:48→18:49)
[2022-07-26 04:00] VITALS: BP 97/54
[2022-07-26] MEDS: PIPERACILLIN/TAZOBACTAM 3.375 G in DEXTROSE 5% WATER 50 ML IV SCH ×3 (06:07→21:23)
[2022-07-26] MEDS: INSULIN LISPRO 100 UNITS/ML SUBCUT SCH ×4 (06:14→20:11)
[2022-07-26] MEDS: BLOOD SUGAR DIAGNOSTIC STRIP TEST SCH ×4 (06:14→20:11)
[2022-07-26 06:23] LABS: BASOPHILS % 0.5 % (0.0-2.0); EOSINOPHILS % 4.8 % (0.0-5.0); HEMATOCRIT. 22.5 % (42.0-52.0); HEMOGLOBIN. 7.7 g/dL (14.0-18.0); LYMPHOCYTES % 19.2 % (20.0-50.0); MEAN CORPUSCULAR HEMOGLOBIN 28.9 pg (28.0-32.0); MEAN CORPUSCULAR VOLUME 84.4 fL (80.0-94.0); MEAN PLATELET VOLUME 6.9 fl (7.4-10.4); MONOCYTES % 8.3 % (2.0-8.0); NEUTROPHILS % 67.2 % (40.0-76.0); PLATELET 378 x1000/uL (130-400); RED BLOOD CELL COUNT 2.67 mill/uL (4.7-6.1); RED CELL DISTRIBUTION WIDTH 14.3 % (11.6-14.6)
[2022-07-26 06:45] LABS: CHLORIDE 107 mEq/L (98-107)
[2022-07-26 08:00] VITALS: BP 113/62
[2022-07-26] MEDS: DEXT 5%/0.9% NACL 1,000 ML IV SCH ×2 (08:01→21:23)
[2022-07-26] MEDS: PANTOPRAZOLE SODIUM 40 MG/VIAL IV SCH ×2 (08:54→20:21)
[2022-07-26] MEDS: MIDODRINE HCL 5MG TABLET PO SCH ×4 (08:54→18:43)
[2022-07-26] MEDS: METFORMIN HCL 500MG TABLET PO SCH ×2 (08:54→17:10)
[2022-07-26] MEDS: FERROUS SULFATE 325MG TABLET PO SCH ×2 (08:54→18:43)
[2022-07-26] MEDS: CYANOCOBALAMIN 1000MCG/ML VIAL SUBCUT SCH (08:54)
[2022-07-26 12:00] VITALS: BP 110/64
[2022-07-26] MEDS: ASCORBIC ACID 500 MG TABLET PO SCH (13:35)
[2022-07-26 16:00] VITALS: BP 139/83
[2022-07-26 20:00] VITALS: BP 116/62
[2022-07-26] MEDS: ATORVASTATIN CALCIUM 20MG TABLET PO SCH (20:21)
[2022-07-27] VITALS: BP 110/51
[2022-07-27 04:00] VITALS: BP 106/66
[2022-07-27] MEDS: PIPERACILLIN/TAZOBACTAM 3.375 G in DEXTROSE 5% WATER 50 ML IV SCH ×3 (05:14→21:19)
[2022-07-27] MEDS: INSULIN LISPRO 100 UNITS/ML SUBCUT SCH ×4 (05:52→21:00)
[2022-07-27] MEDS: BLOOD SUGAR DIAGNOSTIC STRIP TEST SCH ×4 (05:52→21:19)
[2022-07-27 06:49] LABS: BASOPHILS % 0.4 % (0.0-2.0); EOSINOPHILS % 5.2 % (0.0-5.0); HEMATOCRIT. 23.2 % (42.0-52.0); HEMOGLOBIN. 7.8 g/dL (14.0-18.0); LYMPHOCYTES % 19.1 % (20.0-50.0); MEAN CORPUSCULAR HEMOGLOBIN 28.6 pg (28.0-32.0); MEAN CORPUSCULAR VOLUME 84.8 fL (80.0-94.0); MONOCYTES % 7.5 % (2.0-8.0); NEUTROPHILS % 67.8 % (40.0-76.0); PLATELET 435 x1000/uL (130-400); RED BLOOD CELL COUNT 2.74 mill/uL (4.7-6.1); RED CELL DISTRIBUTION WIDTH 14.5 % (11.6-14.6)
[2022-07-27 06:55] LABS: INR 1.1; PROTHROMBIN TIME 11.9 sec (9.6-11.0)
[2022-07-27 06:59] LABS: CHLORIDE 107 mEq/L (98-107)
[2022-07-27 08:00] VITALS: BP 111/69
[2022-07-27] MEDS: MIDODRINE HCL 5MG TABLET PO SCH ×3 (08:31→17:28)
[2022-07-27] MEDS: METFORMIN HCL 500MG TABLET PO SCH ×2 (08:31→17:10)
[2022-07-27] MEDS: CYANOCOBALAMIN 1000MCG/ML VIAL SUBCUT SCH (08:31)
[2022-07-27] MEDS: ACETAMINOPHEN 325MG TABLET PO PRN ×2 (08:31→17:29)
[2022-07-27] MEDS: FERROUS SULFATE 325MG TABLET PO SCH ×2 (08:31→17:28)
[2022-07-27] MEDS: GUAIFENESIN-DM 200MG-20MG/10ML UDC PO PRN ×2 (08:32→17:29)
[2022-07-27] MEDS: PANTOPRAZOLE SODIUM 40 MG/VIAL IV SCH ×2 (08:32→21:19)
[2022-07-27] MEDS: DEXT 5%/0.9% NACL 1,000 ML IV SCH (10:41)
[2022-07-27 12:00] VITALS: BP 110/71
[2022-07-27] MEDS: ASCORBIC ACID 500 MG TABLET PO SCH (12:27)
[2022-07-27 16:00] VITALS: BP 107/50
[2022-07-27 20:00] VITALS: BP 111/66
[2022-07-27] MEDS: ATORVASTATIN CALCIUM 20MG TABLET PO SCH (21:18)
[2022-07-28] VITALS: BP 103/54
[2022-07-28 04:00] VITALS: BP 99/52
[2022-07-28] MEDS: TRAMADOL 50MG TABLET PO PRN (05:14)
[2022-07-28 06:32] LABS: CHLORIDE 107 mEq/L (98-107)
[2022-07-28 06:34] LABS: INR 1.1; PROTHROMBIN TIME 12.1 sec (9.6-11.0)
[2022-07-28] MEDS: BLOOD SUGAR DIAGNOSTIC STRIP TEST SCH ×4 (06:41→20:53)
[2022-07-28] MEDS: INSULIN LISPRO 100 UNITS/ML SUBCUT SCH ×4 (06:41→20:53)
[2022-07-28 06:56] LABS: BASOPHILS % 0.6 % (0.0-2.0); EOSINOPHILS % 5.2 % (0.0-5.0); HEMATOCRIT. 23.2 % (42.0-52.0); LYMPHOCYTES % 17.5 % (20.0-50.0); MEAN CORPUSCULAR HEMOGLOBIN 29.2 pg (28.0-32.0); MEAN CORPUSCULAR VOLUME 84.7 fL (80.0-94.0); MEAN PLATELET VOLUME 6.9 fl (7.4-10.4); MONOCYTES % 7.7 % (2.0-8.0); PLATELET 452 x1000/uL (130-400); RED BLOOD CELL COUNT 2.73 mill/uL (4.7-6.1); RED CELL DISTRIBUTION WIDTH 14.2 % (11.6-14.6)
[2022-07-28 08:00] VITALS: BP 122/71
[2022-07-28] MEDS: METFORMIN HCL 500MG TABLET PO SCH ×2 (09:08→17:36)
[2022-07-28] MEDS: FERROUS SULFATE 325MG TABLET PO SCH ×2 (09:08→17:36)
[2022-07-28] MEDS: PANTOPRAZOLE SODIUM 40 MG/VIAL IV SCH ×2 (09:08→20:37)
[2022-07-28] MEDS: CYANOCOBALAMIN 1000MCG/ML VIAL SUBCUT SCH (09:09)
[2022-07-28] MEDS: ASCORBIC ACID 500 MG TABLET PO SCH (09:09)
[2022-07-28] MEDS: MIDODRINE HCL 5MG TABLET PO SCH ×3 (09:11→17:40)
[2022-07-28] MEDS: DEXT 5%/0.9% NACL 1,000 ML IV SCH ×2 (09:12→12:23)
[2022-07-28 12:00] VITALS: BP 123/68
[2022-07-28 16:00] VITALS: BP 125/68
[2022-07-28 20:00] VITALS: BP 128/68
[2022-07-28] MEDS: ATORVASTATIN CALCIUM 20MG TABLET PO SCH (20:37)
[2022-07-28] MEDS: ACETAMINOPHEN 325MG TABLET PO PRN (20:38)
[2022-07-29] VITALS: BP 128/68
[2022-07-29] MEDS: DEXT 5%/0.9% NACL 1,000 ML IV SCH ×2 (02:52→16:02)
[2022-07-29 03:23] LABS: CHLORIDE 110 mEq/L (98-107)
[2022-07-29 03:33] LABS: INR 1.1; PROTHROMBIN TIME 12.2 sec (9.6-11.0)
[2022-07-29 03:39] LABS: BASOPHILS % 0.5 % (0.0-2.0); EOSINOPHILS % 4.8 % (0.0-5.0); HEMATOCRIT. 23.9 % (42.0-52.0); HEMOGLOBIN. 7.9 g/dL (14.0-18.0); LYMPHOCYTES % 17.8 % (20.0-50.0); MEAN CORPUSCULAR HEMOGLOBIN 28.3 pg (28.0-32.0); MEAN CORPUSCULAR VOLUME 85.2 fL (80.0-94.0); MEAN PLATELET VOLUME 6.9 fl (7.4-10.4); MONOCYTES % 7.7 % (2.0-8.0); NEUTROPHILS % 69.2 % (40.0-76.0); PLATELET 435 x1000/uL (130-400); RED BLOOD CELL COUNT 2.81 mill/uL (4.7-6.1)
[2022-07-29 04:00] VITALS: BP 124/49
[2022-07-29] MEDS: BLOOD SUGAR DIAGNOSTIC STRIP TEST SCH ×4 (06:40→20:39)
[2022-07-29] MEDS: FERROUS SULFATE 325MG TABLET PO SCH ×2 (07:10→17:02)
[2022-07-29] MEDS: INSULIN LISPRO 100 UNITS/ML SUBCUT SCH ×4 (07:10→20:40)
[2022-07-29] MEDS: METFORMIN HCL 500MG TABLET PO SCH ×2 (07:10→17:02)
[2022-07-29] MEDS: MIDODRINE HCL 5MG TABLET PO SCH ×3 (07:45→17:02)
[2022-07-29] MEDS: ASCORBIC ACID 500 MG TABLET PO SCH (07:46)
[2022-07-29 08:00] VITALS: BP 127/68
[2022-07-29] MEDS: PANTOPRAZOLE SODIUM 40 MG/VIAL IV SCH ×2 (08:59→20:39)
[2022-07-29 12:00] VITALS: BP 110/64
[2022-07-29] MEDS ORDERED: LIDOCAINE HCL 1% 10 MG/ML 10ML VIAL ONE (12:15)
[2022-07-29] MEDS ORDERED: PROPOFOL 200MG/20ML VIAL IV ONE (12:15)
[2022-07-29] MEDS ORDERED: MIDAZOLAM HCL 2 MG/2 ML VIAL ONE (12:16)
[2022-07-29 16:00] VITALS: BP 115/72
[2022-07-29 20:00] VITALS: BP 121/58
[2022-07-29] MEDS: ATORVASTATIN CALCIUM 20MG TABLET PO SCH (20:39)
[2022-07-29] MEDS: ACETAMINOPHEN 325MG TABLET PO PRN (20:39)
[2022-07-30] VITALS: BP 118/64
[2022-07-30 04:00] VITALS: BP 114/62
[2022-07-30] MEDS: BLOOD SUGAR DIAGNOSTIC STRIP TEST SCH ×3 (07:31→21:00)
[2022-07-30] MEDS: INSULIN LISPRO 100 UNITS/ML SUBCUT SCH ×3 (07:50→21:00)
[2022-07-30 08:00] VITALS: BP 118/67
[2022-07-30 12:00] VITALS: BP 131/66
[2022-07-30] MEDS: ASCORBIC ACID 500 MG TABLET PO SCH (12:52)
[2022-07-30] MEDS: METFORMIN HCL 500MG TABLET PO SCH (12:52)
[2022-07-30] MEDS: MIDODRINE HCL 5MG TABLET PO SCH ×2 (12:53→13:25)
[2022-07-30] MEDS: PANTOPRAZOLE SODIUM 40 MG/VIAL IV SCH ×2 (12:53→22:31)
[2022-07-30] MEDS: FERROUS SULFATE 325MG TABLET PO SCH (12:53)
[2022-07-30] MEDS: ACETAMINOPHEN 650MG/20.3ML UDC PO PRN (13:01)
[2022-07-30] MEDS: DEXT 5%/0.9% NACL 1,000 ML IV SCH (13:18)
[2022-07-30 16:00] VITALS: BP 125/76
[2022-07-30] MEDS ORDERED: HYDR-4001 MT (18:15)
[2022-07-30 20:00] VITALS: BP 116/71
[2022-07-30] MEDS: ATORVASTATIN CALCIUM 20MG TABLET PO SCH (22:30)
[2022-07-30] MEDS: ACETAMINOPHEN 325MG TABLET PO PRN (22:31)
[2022-07-31] VITALS: BP 98/60
[2022-07-31 04:00] VITALS: BP 118/68
[2022-07-31] MEDS: BLOOD SUGAR DIAGNOSTIC STRIP TEST SCH ×3 (07:20→17:20)
[2022-07-31] MEDS: INSULIN LISPRO 100 UNITS/ML SUBCUT SCH ×3 (07:50→17:50)
[2022-07-31] MEDS: FERROUS SULFATE 325MG TABLET PO SCH ×2 (07:50→18:14)
[2022-07-31] MEDS: METFORMIN HCL 500MG TABLET PO SCH ×2 (07:50→18:14)
[2022-07-31 08:00] VITALS: BP 130/73
[2022-07-31] MEDS: DEXT 5%/0.9% NACL 1,000 ML IV SCH (08:01)
[2022-07-31] MEDS: MIDODRINE HCL 5MG TABLET PO SCH ×3 (09:22→18:14)
[2022-07-31] MEDS: ASCORBIC ACID 500 MG TABLET PO SCH (09:22)
[2022-07-31] MEDS: PANTOPRAZOLE SODIUM 40 MG/VIAL IV SCH (09:22)
[2022-07-31] MEDS: ACETAMINOPHEN 325MG TABLET PO PRN ×2 (10:09→18:18)
[2022-07-31 17:06] VITALS: BP 129/71
== END 2022-07-31 20:02 | disposition home health service (06) | DRG 252 ==
LOC: ER 15:05 → 7WST 18:44 → EDBEDREQSVC 18:50 → EDBEDREQTM 18:50 → EDBEDREQ 18:50 → ENRESERV 21:06 → 7WST 07-18 16:52 → 7EST 07-23 04:53 → 6EST 07-29 19:00
PROVIDERS: ADMIT Internal Medicine; ATTEND Internal Medicine
PROC: 047K3DZ Dilation of Right Femoral Artery with Intraluminal Device, Percutaneous Approach (ICD-10-PCS; 2022-07-21)
PROC: 04FK3ZZ Fragmentation of Right Femoral Artery, Percutaneous Approach (ICD-10-PCS; 2022-07-21)
PROC: 0DB78ZX Excision of Stomach, Pylorus, Via Natural or Artificial Opening Endoscopic, Diagnostic (ICD-10-PCS; principal; 2022-07-29)
DX: E11.52 Type 2 diabetes mellitus with diabetic peripheral angiopathy with gangrene (principal); K29.71 Gastritis, unspecified, with bleeding; U07.1 COVID-19; T87.43 Infection of amputation stump, right lower extremity; I70.261 Atherosclerosis of native arteries of extremities with gangrene, right leg; E44.0 Moderate protein-calorie malnutrition; E87.1 Hypo-osmolality and hyponatremia; L03.115 Cellulitis of right lower limb; T87.53 Necrosis of amputation stump, right lower extremity; Z20.822 Contact with and (suspected) exposure to COVID-19; E78.00 Pure hypercholesterolemia, unspecified; E87.5 Hyperkalemia; I10 Essential (primary) hypertension; K57.90 Diverticulosis of intestine, part unspecified, without perforation or abscess without bleeding; K57.30 Diverticulosis of large intestine without perforation or abscess without bleeding; D50.9 Iron deficiency anemia, unspecified; Z89.431 Acquired absence of right foot; Z90.49 Acquired absence of other specified parts of digestive tract; R58 Hemorrhage, not elsewhere classified; Z79.02 Long term (current) use of antithrombotics/antiplatelets; Z79.4 Long term (current) use of insulin; Z91.199 Patient's noncompliance with other medical treatment and regimen due to unspecified reason; D64.89 Other specified anemias
CPT/HCPCS: 36415; 37226; 71045; 73630; 75635; 75710; 80048; 80053; 80061; 80202; 82270; 82607; 82728; 82746; 82962; 83036; 83540; 83550; 85014; 85018; 85025; 85044; 85347; 86850; 86900; 87426; 88305; 93005; 93923; 93970; 97116; 97162; 97166; 99285; C1714; C1725; C1760; C1769; C1876; C1887; C1893; C1894; C9113; J1644; J1815; J1885; J2250; J2270; J2405; J2543; J2704; J3010; J3370; J3420; J3490; J7030; J7042; J7060; Q9967; C1761